=== PATIENT | female | born 2000 | race Two or more races ===

== ENCOUNTER 2023-01-11 13:59 | Emergency (ER) | payer MEDICAID ==
[~2023-01-11] VITALS: Ht 162.6 cm; Wt 75.6 kg
[2023-01-11 14:24] VITALS: BP 138/80; PULSE 80; RESP 18; TEMP 98.2; O2SAT 99
[2023-01-11 15:07] LABS: BASOPHILS % (AUTO) 0.5 % (0-1); EOSINOPHILS % (AUTO) 0.3 % (0-6); HEMATOCRIT 35.3 % (35.0-45.0); HEMOGLOBIN 11.1 g/dl (12.0-16.0); LYMPHOCYTES # (AUTO) 2.7 X10'3 (1.1-4.8); LYMPHOCYTES % (AUTO) 32.7 % (21-51); MEAN CORPUSCULAR HGB CONC 31.3 g/dL (33.0-36.5); MEAN CORPUSCULAR VOLUME 57.4 FL (78-98); MEAN PLATELET VOLUME 8.8 FL (7.4-10.4); MONOCYTES # (AUTO) 0.7 X10'3 (0-0.9); MONOCYTES % (AUTO) 7.9 % (2-12); NEUTROPHILS # (AUTO) 4.9 X10'3 (1.8-7.7); NEUTROPHILS % (AUTO) 58.6 % (42-75); PLATELET COUNT 391 X10'3 (140-440); RED BLOOD COUNT 6.15 X10'6 (4.20-5.60); RED CELL DISTRIBUTION WIDTH 21.5 % (11.5-14.5); WHITE BLOOD COUNT 8.4 X10'3 (4.5-11.0)
[2023-01-11 15:36] LABS: ANISOCYTOSIS 3+; MICROCYTOSIS 3+; PLATELET ESTIMATE NORMAL
[2023-01-11 15:37] LABS: ELLIPTOCYTES FEW; TEAR DROP CELLS FEW
[2023-01-11 15:41] LABS: ALANINE AMINOTRANSFERASE 32 U/L (12-78); ALBUMIN 3.5 G/DL (3.4-5.0); ALBUMIN/GLOBULIN RATIO 0.7 (1.1-1.5); ALKALINE PHOSPHATASE 125 IU/L (46-116); ANION GAP 7 (8-16); ASPARTATE AMINO TRANSFERASE 32 U/L (10-37); BILIRUBIN,TOTAL 0.3 MG/DL (0.1-1.0); BLOOD UREA NITROGEN 8 MG/DL (7-18); BUN/CREATININE RATIO 17.4 (10.0-20.0); CALCIUM 8.9 MG/DL (8.5-10.1); CHLORIDE 103 MMOL/L (99-107); CREATININE 0.46 MG/DL (0.40-0.90); GLUCOSE 97 MG/DL (70-104); POTASSIUM 3.6 MMOL/L (3.5-5.1); SODIUM 136 MMOL/L (135-145); TOTAL CARBON DIOXIDE 26.1 MMOL/L (24-32); TOTAL PROTEIN 8.8 G/DL (6.4-8.2); eCRCL 166 ML/MIN; eGFR > 90 ML/MIN
[2023-01-11 16:06] LABS: LIPASE 20 U/L (16-77)
[2023-01-11 16:10] LABS: BETA HCG,QUANTITATIVE 4525 mIU/ml
[2023-01-11 16:28] LABS: BILIRUBIN,URINE NEGATIVE (Neg); CLARITY,URINE CLEAR (Clear); COLOR,URINE YELLOW (Yellow); GLUCOSE, URINE NEGATIVE (Neg); KETONES,URINE NEGATIVE (Neg); LEUKOCYTE ESTERASE ,URINE NEGATIVE (Neg); NITRITES, URINE NEGATIVE (Neg); OCCULT BLOOD,URINE NEGATIVE (Neg); PROTEIN,URINE NEGATIVE (Neg); UROBILINOGEN,URINE 0.2 E.U/dL (0.2-1.0)
[2023-01-11 16:35] LABS: UA COLLECTION TYPE CLN CATCH MIDSTREAM
--- NOTE | 2023-01-11 19:19 | NUR ---
nurse chaperoned dontrell stoddard for exam
== END 2023-01-11 19:57 | disposition home or self-care (01) ==
LOC: ER 13:59
DX: T83.32XA Displacement of intrauterine contraceptive device, initial encounter (principal); O26.891 Other specified pregnancy related conditions, first trimester; R10.2 Pelvic and perineal pain
CPT/HCPCS: 76801; 76817; 80053; 81003; 83690; 84702; 85008; 85025; 87210; 99284

== ENCOUNTER 2024-03-07 15:38 | Emergency (ER) | payer BC, MEDICAID ==
[~2024-03-07] VITALS: Ht 162.6 cm; Wt 89.1 kg
[2024-03-07] MEDS: acetaminophen 325mg tablet PO ONE ×2 (15:49→18:29)
[2024-03-07] MEDS: oseltamivir phos 75mg capsule PO ONE (18:29)
[2024-03-07] MEDS: ketorolac trometh 30MG/ML vial 30 MG/ML VIAL IM ONE (18:30)
[2024-03-07 19:22] LABS: BILIRUBIN,URINE NEGATIVE (Neg); CLARITY,URINE CLEAR (Clear); COLOR,URINE YELLOW (Yellow); GLUCOSE, URINE NEGATIVE (Neg); KETONES,URINE NEGATIVE (Neg); LEUKOCYTE ESTERASE ,URINE NEGATIVE (Neg); NITRITES, URINE NEGATIVE (Neg); OCCULT BLOOD,URINE SMALL (Neg); PROTEIN,URINE NEGATIVE (Neg); UROBILINOGEN,URINE 0.2 E.U/dL (0.2-1.0)
[2024-03-07 19:27] LABS: UA COLLECTION TYPE CLN CATCH MIDSTREAM
[2024-03-07 19:28] LABS: BACTERIA,URINE NONE SEEN /HPF (Neg); SQUAMOUS EPITHELIAL CELL,UR FEW /LPF (FEW); WBC,URINE 0-4 /HPF (0-4)
[2024-03-07] MEDS ORDERED: TAM75C PO (19:45)
[2024-03-07] MEDS ORDERED: IBUP-1984 PO (19:45)
[2024-03-07 20:12] VITALS: BP 138/99; PULSE 101; RESP 18; TEMP 99.9; O2SAT 98
== END 2024-03-07 20:13 | disposition home or self-care (01) ==
LOC: ER 15:38
DX: J11.1 Influenza due to unidentified influenza virus with other respiratory manifestations (principal); Z79.899 Other long term (current) drug therapy; Z20.822 Contact with and (suspected) exposure to COVID-19
CPT/HCPCS: 36415; 81001; 87502; 87503; 87811; 96372; 99284; J1885